=== PATIENT | male | born 1980 | race Caucasian/White ===

== ENCOUNTER 2025-02-21 08:15 | Emergency (ER) | payer BC, SELFPAY ==
[2025-02-21 08:25] VITALS: BP 121/73; PULSE 73; RESP 18; TEMP 36.3; O2SAT 98
--- OUTSIDE RECORDS SUMMARY | 2025-02-21 08:32 | XMS_ITS | Patient Health Record ---
Author Organization [employer] [employer] Address [address] [facility] [address] [place] [address] Care Team Providers Care Unemployment Inspector Name Role Phone Ronny Garcia MD Primary Care Provider Neville Charles MD, Kris Unavailable Unavailable Reason For Referral No Information Medications Medication SIG (Take, Route, Fr equency, Duration) Notes Start Date End Date Status Omeprazole 20 MG 1 capsule Orally 1-2 times a day Active Social History Tobacco Use: Social History Observation Description Date Details (start date - stop date) Former Smoker NA - NA Tobacco Use/Smoking Question Answer Notes Are you a former smoker How long has it been since you last smoked? < 1 month Problems Problem Type SNOMED Code ICD Code Onset Dates Problem Status W/U Status Risk Notes Problem Gastroesophageal reflux disease (151498593) GERD (gastroesoph ageal reflux disease) (K21.9) Active confirmed Problem Throat clearing (97610885) Throat clearing (R68.89) Active confirmed Plan Of Treatment Pending Test Test Name Order Date Upper Endoscopy 06/23/2017 Insurance Providers Payer Name Payer Address Payer Phone Subscriber Number Group Number Insured Name Patient Relationship to Insured Coverage Start Date Coverage End Date Blue Access PPO E2 [address] [place] [address] [id number] Rubens Russell Self - patient is the insured Medical (General) History Medical History History ICD Code GERD Surgical History Surgery Date(Month/Year) Colonoscopy: Normal per martina ent report: a few years ago: Outside provider 2015 Tonsillectomy
--- OUTSIDE RECORDS SUMMARY | 2025-02-21 08:32 | XMS_ITS | Clinical Summary ---
Author Organization [facility] Address [address] [place] [address] Care Team Providers Care Microsoft Infrastructure Consultant Name Role Phone Justino Garcia MD Primary Care Provider [phone] Source Comments [facility],non-owned Affiliates and Associated Physician Practices is amultiple site organization consisting of ambulatory clinics and hospital sitesin [place], [place], [place] and [place]. This disclosure is being madepursuant to the Care Everywhere program and may not contain all information available regarding this patient. Last updated 17.[employer] [facility] Allergies No known active allergies Medications * Be aware that medications may not be up to date on this document. Alwaysverify current medications with the patient. EPINEPHrine (EPIPEN) 0.3 MG/0.3ML auto-injector Inject 0.3 mL into muscle once as needed for Anaphylaxis for 1 dose. 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 Gender Identity Not on file Sexual Orientation Not on file Last Filed Vital Signs Vital Sign Reading Time Taken Comments Blood Pressure 102/80 05/30/2016 8:31 AM CDT Pulse 90 05/30/2016 7:57 AM CDT Temperature 37.2 C (98.9 F) 05/30/2016 7:57 AM CDT Respiratory Rate 18 05/30/2016 7:57 AM CDT Oxygen Saturation 100% 11/18/2011 9:25 AM CDT Inhaled Oxygen Concentration - - Weight 77.1 kg (170 lb) 05/30/2016 7:57 AM CDT Height 177.8 cm (5' 10) 05/30/2016 7:57 AM CDT Body Mass Index 24.39 05/30/2016 7:57 AM CDT Plan of Treatment Health Maintenance Due Date Last Done Comments LIPID TESTING 1981 HIV SCREENING 1996 HEPATITIS C SCREENING 09/21/1999 DTAP/TDAP/TD VACCINES (1 - Tdap) 2000 HEPATITIS B VACCINE (1 of 3 - 19+ 3-dose series) 2000 HPV VACCINE (1 - 3-dose SCDM series) 2008 DEPRESSION SCREENING 03/09/2024 COVID-19 VACCINE (1 - 2024-2 6 season) 2024 INFLUENZA VACCINE (#1) 2024 ZOSTER VACCINE (1 of 2) 09/26/2031 HIB VACCINE Aged Out No longer eligi ble based on patient's age to complete this topic MENINGOCOCCAL (Group B) VACC INE SHARED DECISION-MAKING Aged Out No longer eligibl e based on patient's age to complete this topic MENINGOCOCCAL GROUPS A/C/Y/W VACCINE Aged Out No longer eligible b ased on patient's age to complete this topic PNEUMOCOCCAL VACCINE Aged Out No long er eligible based on patient's age to complete this topic Insurance [facility] Address: [facility] [id number] [place] [address] Care Teams Microsoft Infrastructure Consultant Relationship Specialty Start Date End Date Justino Garcia MD [address] [place] [phone] PCP - General Internal Medicine 05/30/16
--- OUTSIDE RECORDS SUMMARY | 2025-02-21 08:32 | XMS_ITS | Clinical Summary ---
Author Organization [address] Address 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 Bee stings he swells up and has itching. Yellow Jacket Venom Anaphylaxis High 11/30/2018 Medications EPINEPHrine (EPIPEN) 0.3 mg/0.3 mL auto-injection syringeIndicati ons:Anaphylaxis Inject 0.3 mL (0.3 mg total) into the muscle as instructed as needed for anaphylaxis 6 each 9 Active EPINEPHrine 0.3 mg/0.3 mL auto-injection syringe EpiPen 2-Angelito 0.3 MG/0.3ML Injection Solution Auto-injector QTY: 2 each Days: 30 Refills: 0 Written: 10/25/19 Patient Instructions: as directed 0 Active cyanocobalamin (Vitamin B-12) 500 mcg tabletIndicatio ns:Prevention of Vitamin B12 Deficiency Take 1 tablet (500 mcg total) by mouth daily Active FLUoxetine (PROzac) 20 mg capsule Take 2 capsules (40 mg total) by mouth daily 2 Active gabapentin (NEURONTIN) 300 mg capsule Take 1 capsule (300 mg total) by mouth nightly Active Active Problems Problem Noted Date Diagnosed Date Palpitations 06/07/2021 Encounters Date Type Department Care Team Description 12/27/2024 2:00 PM CDT Office Visit [facility] [address] [place] [address] [address] [place] [address] Trevin Strickland MD RENAE (obstructive sleep apnea) (Primary Dx); Overweight (BMI 25.0-29.9); Hypersomnia from Last 3 Months Surgical History Surgery Date Site/Laterality Comments TONSILLECTOMY/ADENOIDECTOMY TONSILLECTOMY AND ADENOIDECTOMY Medical History Medical History Date Comments No pertinent past medical history Known health problems: none PAC (premature atrial contraction) Family History Relation Name Status Comments Brother Alive Father Alive Mother Alive Sister Alive Social History Tobacco Use Types Packs/Day Years Used Date Smoking Tobacco: Former Cigarettes Smokeless Tobacco: Former Chew Tobacco Cessation:Counseling Given: Not Answered Alcohol Use Standard Drinks/Week Comments Never 0 (1 standard drink = 0.6 oz pur e alcohol) AUDIT-C Answer Date Recorded Frequency of Alcohol Consumption Never 11/30/2018 Average Number of Drinks Not on file 019 Frequency of Binge Drinking Not on file 11/08 Sex and Gender Information Value Date Recorded Sex Assigned at Not on file 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 Gender Identity Not on file Sexual Orientation Not on file Last Filed Vital Signs Vital Sign Reading Time Taken Comments Blood Pressure 114/78 12/27/2024 2:08 PM CDT Pulse 65 12/27/2024 2:08 PM CDT Temperature 36.8 C (98.2 F) 08/23/2021 8:19 AM CDT Respiratory Rate 18 09/29/2022 2:51 PM CDT Oxygen Saturation 96% 12/27/2024 2:08 PM CDT Inhaled Oxygen Concentration - - Weight 92.5 kg (204 lb) 12/27/2024 2:08 PM CDT Height 177.8 cm (5' 10) 12/27/2024 2:08 PM CDT Body Mass Index 29.27 12/27/2024 2:08 PM CDT Plan of Treatment Health Maintenance Due Date Last Done Comments Depression Screening 1981 Hepatitis C Screening 1981 Varicella Vaccines (1 of 2 - 13+ 2-dose series) 1994 Hepatitis B Screening 09/26/1999 Regular Well Visit/Exam 18-64 09/26/1999 HPV Vaccines (1 - 3-dose SCD M series) 2008 DTaP/Tdap/Td Vaccine (2 - Td or Tdap) 06/14/2024 06/14/2014 Influenza Vaccine (#1) 2024 Pneumococcal vaccine <65 Aged Out No longer eligible based on patient's age to complete this topic Insurance [employer] [place] [employer] [place] [employer] [place] [employer] [facility] Care Teams Reversal Print Inspector Relationship Specialty Start Date End Date Justino Garcia MD [address] [place] [address] PCP - General Internal Medicine 11/05/21 Justino Garcia MD [address] [place] [address] 10/16/20
--- NOTE | 2025-02-21 08:40 | ED_ITS ---
HPI - URI/Sore Throat General Chief Complaint: Upper Respiratory Infection Stated Complaint: Body Aches/Headache/Neck Pain Time Seen by Provider: 02/21/25 08:41 Source: patient Mode of arrival: ambulatory Limitations: no limitations History of Present Illness HPI Narrative: 44-year-old male presents to [facility] with complaints of 2 day history of body aches, stiff neck, headache, feelings of hoarseness with fevers around 100F. Patient reports he has been taking ibuprofen and Theraflu for his symptoms. Patient does admit to sinus congestion and drainage and some sore throat also. Patient states is also ill with similar symptoms. MD elicited complaint: fever (100F highest), sore throat, rhinorrhea, nasal congestion and sinus pain Onset (ago): day(s) (2 days) Pain scale (0-10): 2 Description of mucous: clear Able to tolerate fluids by mouth: Yes Treatments prior to arrival: ibuprofen and other (theraflu) Related Data Home Medications ?Medication ?Instructions ?Recorded ?Confirmed ?Last Taken ?Type fluoxetine 40 mg capsule mg 02/21/25 Unknown History gabapentin 300 mg capsule mg 02/21/25 Unknown History Allergies Allergy/AdvReac Type Severity Reaction Status Date / Time No Known Allergies Allergy Verified 02/21/25 09:03 Review of Systems Review of Systems: CONSTITUTIONAL: Reports malaise, chills, sweats, or fever. EYES: Denies visual changes, redness, or discharge. ENT: Reports rhinorrhea, congestion, sinus pain,no otalgia and +sore throat. CARDIOVASCULAR: Denies chest pain, palpitations, or edema. RESPIRATORY: Reports occasional cough.? Denies dyspnea. GASTROINTESTINAL: Denies abdominal pain, nausea, vomiting, diarrhea SKIN: Denies rash or itching. MUSCULOSKELETAL: Reports myalgia. NEUROLOGIC: Reports headache. All systems reviewed & are unremarkable except as noted in HPI and below PMFSH Past Medical History Medical History (Updated 02/21/25 @ 09:01 by Omayra Anderson APRN) Restless leg syndrome GERD (gastroesophageal reflux disease) Anxiety and depression Social History Social History (Updated 02/21/25 @ 08:53 by Omayra Anderson APRN) Smoking status: Never smoker Living arrangements: with family Gender identity (if verbalized by the patient): Male Comments At time of signature, agree with nursing past medical, surgical, social and family history. There is no relevant family history pertinent to the presenting complaint Exam Narrative: GENERAL: Well-appearing, well-nourished, and in no acute distress. HEAD: Normocephalic EYES: PERRLA, conjunctivae clear ENT: Nares clear, turbinates edematous and erythematous, clear discharge. Mucous membranes moist. TM pearly corley with dull light reflex bilaterally; no tragal tenderness. Oropharynx erythematous without lesions. Tonsils enlarged and without exudate, no drooling, no hoarseness, no trismus, uvula midline.post nasal drainage noted NECK: Supple. No lymphadenopathy CHEST: Clear to auscultation, breath sounds equal. No wheezing, rhonchi, rales, or stridor. No respiratory distress, speaks in full sentences. no acute cough SAO2 98% on room air HEART: Regular rate and rhythm. No murmur heard. SKIN: Warm, dry, no rash. NEURO: Alert and oriented x3. PSYCH: Normal mood and affect Course Course Level of Care: Express Care Visit Vital Signs Vital signs: Vital Signs Temperature 36.3 C L 02/21/25 08:25 Pulse Rate 73 02/21/25 08:25 Respiratory Rate 18 02/21/25 08:25 Blood Pressure 121/73 02/21/25 08:25 Pulse Oximetry 98 02/21/25 08:25 Oxygen Delivery Room Air 02/21/25 08:25 Temperature 36.3 C L 02/21/25 08:25 Pulse Rate 73 02/21/25 08:25 Respiratory Rate 18 02/21/25 08:25 Blood Pressure 121/73 02/21/25 08:25 Pulse Oximetry 98 02/21/25 08:25 Oxygen Delivery Room Air 02/21/25 08:25 reviewed [facility] Narrative Medical decision making narrative: 44 year old male who presents to express care with URI symptoms. Patient is negative for COVID, FLU, and step and is nontoxic in appearance. Anticipatory guidance and reasons to seek care in the ED reviewed with patient with understanding voiced. Differential Diagnosis Differential Diagnosis: Differential diagnostic considerations for upper respiratory infection include upper respiratory infection, croup, otitis media, sinusitis, viral infection, bronchitis, influenza, pharyngitis, strep, uvulitis.? Lab Data [facility] Lab Attestation statement: I personally reviewed the patient's lab results. Lab results narrative: COVID antigen negative, Influenza A&B negative, strep screen negative culture sent Labs: Lab Results 02/21/25 02/21/25 Range/Units 08:42 08:57 POC Influenza A Ag Negative (Negative) POC Influenza B Ag Negative (Negative) POC SARS CoV-2 Ag Negative (Negative) POC Grp A Strep Screen Negative (Negative) reviewed Critical Care Time Critical Care Time Critical Care Time: No Discharge Plan Discharge Clinical Impression: URI (upper respiratory infection) Qualifiers: URI type: unspecified URI Qualified Code(s): J06.9 - Acute upper respiratory infection, unspecified Patient Disposition: Home Condition: Stable Instructions: Antibiotic Form, Upper Respiratory Infection (ED) Additional Instructions: Increase fluids especially juices and water [id number]-wlk-[id number] cough and cold medicine of your choice for your symptoms Zyrtec Claritin or Estefany daily include plain Sudafed twice daily Steroids as directed--take with food heat to the face 20-30 minutes 4-6 times a day for pain Salt water gargles, throat lozenges or throat sprays as desired Your strep test today was negative. A throat culture will be sent to the laboratory for further testing. IF the test is positive, you will receive a phone call within 48 hours and an appropriate antibiotic will be initiated at that time. If your symptoms persist, change or worsen significantly before you can contact your personal physician then please, without delay, go to the emergency department for further evaluation. Follow-up with PCP in 7-10 days or sooner if needed you tested negative for COVID and flu and strep Patient Language: New Zealander Prescriptions: New methylprednisolone [Medrol (Angelito)] 4 mg tablets,dose pack See Rx Instructions .ROUTE .COMPLEX Qty: 21 0RF Rx Instructions: orally per package directions No Action fluoxetine 40 mg capsule gabapentin 300 mg capsule Follow-up/Referrals: PHYSICIAN NOT ON STAFF,NONSTAFF [Primary Care Provider] Stand Alone Forms: Work/School Release IP Time of Disposition: 09:01 Quality [place] Coma Scale Eyes: Open Verbal: Oriented and Alert Motor: Follows Commands [place] Coma Total Score: 15
[2025-02-21 09:01] LABS: EDSTREPNEGPOS1 Negative (Negative)
[2025-02-21 09:01] LABS: EDCOVIDSCREEN Negative (Negative); EDINFLUASCREEN Negative (Negative); EDINFLUBSCREEN Negative (Negative)
== END 2025-02-21 09:09 | disposition home or self-care (01) ==
PROVIDERS: Emergency Provider Registered Nurse
DX: J06.9 Acute upper respiratory infection, unspecified (principal); Z20.822 Contact with and (suspected) exposure to COVID-19; K21.9 Gastro-esophageal reflux disease without esophagitis; G25.81 Restless legs syndrome; F41.9 Anxiety disorder, unspecified; F32.A Depression, unspecified
CPT/HCPCS: 87081; 87426; 87804; 87880; 99203; G0463